=== PATIENT | male | born 1990 | race African-American/Black ===

== ENCOUNTER 2018-06-11 18:42 | Emergency (ER) | payer OTHER ==
[~2018-06-11] VITALS: Ht 188 cm; Wt 134.1 kg
[2018-06-11 19:09] VITALS: BP 131/92; PULSE 87; TEMP 98.5
== END 2018-06-11 20:25 | disposition left against medical advice (07) ==
LOC: COL.ER 18:42
DX: S81.811A Laceration without foreign body, right lower leg, initial encounter (principal); W26.8XXA Contact with other sharp object(s), not elsewhere classified, initial encounter